=== PATIENT | female | born 1995 | race Caucasian/White ===

== ENCOUNTER 2016-10-11 21:55 | Inpatient (IN) | payer MEDICAID ==
[~2016-10-11] VITALS: Ht 157.5 cm; Wt 64.1 kg
[~2016-10-11 21:55] MED LIST: FERR325C PO; FOL8 PO; PRENAT PO
[2016-10-11 22:18] VITALS: BP 108/59; PULSE 99; RESP 18
--- NOTE | 2016-10-11 23:07 | RADRPT ---
PROCEDURE: ULTRASOUND OBSTETRICAL CLINICAL INDICATION: 21-year-old female with decreased movement for size and date determinat ion. TECHNIQUE: Multiple sonographic images of the pelvis were obtained. The images were reviewed on a PACS workstation. COMPARISON: Ultrasound biophysical profile obtained concurrently; ultrasound biophysical profile D [id number]. FINDINGS: The cervix is not well visualized. There is a single viable intrauterine gestation. Cardiac activit y is present with 148 beats per minute. There is a vertex presentation. Measurements were made in or hammad to determine age. The results are as follows: BPD = 9.31 cm, HC = 33.34 cm, AC = 34.39 cm, FL = 7.42 cm. This yields and estimated gestational ag e of approximately 38 weeks 1 day. The estimated date of delivery is October 24, 2016. The EFW = 3 410 +/- 511 g (7 lb 8 oz). The GP is 45%. The placenta is anterior. There is no evidence for an abruption or placenta previa. IMPRESSION: 1. Single viable intrauterine gestation of approximately 38 weeks 1 day with vertex presentation. The estimated date of delivery is October 24, 2016. 2. The estimated weight is 3410 +/- 511 g (7 lb 8 oz). The GP is 45%. .Malcolm Simpson MD, Date Time Electronically viewed and signed by .Malcolm Simpson MD, on 10/11/2016 23:07 .Shaheed/
--- NOTE | 2016-10-11 23:09 | RADRPT ---
PROCEDURE: ULTRASOUND BIOPHYSICAL PROFILE CLINICAL INDICATION: 21-year-old female with decreased movement for viability . TECHNIQUE: Multiple sonographic images were obtained in order to perform a biophysical profile The images were reviewed on a PACS workstation. COMPARISON: Ultrasound OB obtained concurrently; ultrasound biophysical profile September 29, 2016. FINDINGS: There is a single viable intrauterine gestation. There is a vertex presentation. Cardiac activity i s present at 152 beats per minute. The placenta is anterior. The results of the biophysical profile are as follows: breathing movement = 2/2 Gross body movement = 2/2 tone = 2/2 Qualitative amniotic fluid volume = 2/2 Amniotic fluid index equals 6.6 cm. This yields a biophysical profile score of 8/8. IMPRESSION: 1. Biophysical profile score is 8/8. 2. Amniotic fluid index equals 6.6 cm. .Malcolm Simpson MD, Date Time Electronically viewed and signed by .Malcolm Simpson MD, MD on 10/11/2016 23:09 .Shaheed/
[2016-10-12] MEDS ORDERED: MISOPROSTOL 200 MCG TAB PR PRN
[2016-10-12] MEDS ORDERED: IBUPROFEN 600 MG TAB PO PRN
[2016-10-12] MEDS ORDERED: METHYLERGONOVINE 0.2 MG INJ IM PRN
[2016-10-12] MEDS ORDERED: CARBOPROST 250 MCG INJ IM PRN
[2016-10-12] MEDS ORDERED: BUTORPHANOL 2 MG INJ IV PRN
[2016-10-12] MEDS ORDERED: OXYTOCIN 30 UNITS/LR 500 ML IV PRN
[2016-10-12] MEDS ORDERED: LIDOCAINE 1% (MPF) 30 ML INJ INJ PRN
[2016-10-12] MEDS ORDERED: DINOPROSTONE 10 MG VAG SUPP VAG ONE
[2016-10-12] MEDS: LACTATED RINGER'S 1,000 ML IV SCH ×4 (00:20→16:41)
--- NOTE | 2016-10-12 00:24 | TRIAGE ---
OB Triage Datetime Report Generated by CPN: 10/12/2016 00:23 Datetime: 10/12/2016 00:03 Stage of : OB Triage Labor Evaluation Frequency: 2-6 Monitor Mode: External Quality: Mild Pattern: Normal: <= 5 Contractions in 10 Minutes Resting Tone [place]: Relaxed Heart Rate FHR Baseline Rate: 135 Monitor Mode: External US FHR Baseline Changes: No Baseline Change Variability: Moderate 6-25 bpm Accelerations: 15X15 Decelerations: None Category: Category I Datetime: 10/11/2016 23:12 Stage of : OB Triage Labor Evaluation Frequency: 3-6 Monitor Mode: External Duration (sec)2399: 50-80 Quality: Mild Pattern: Normal: <= 5 Contractions in 10 Minutes Resting Tone [place]: Relaxed Heart Rate FHR Baseline Rate: 155 Monitor Mode: External US FHR Baseline Changes: No Baseline Change Variability: Moderate 6-25 bpm Accelerations: 15X15 Decelerations: None Category: Category I Vaginal Exam Dilatation (cms): 0.0 Effacement (%): 50 Station: -2 Exam By: Umer Shi Membrane Status: Intact Vaginal Bleeding: None Cervix, Consistency: Moderate Cervix, Position: Posterior Presentation 'A': Cephalic Datetime: 10/11/2016 22:10 Stage of : OB Triage Maternal Assessment Level of Consciousness: Fully Conscious Headache: Denies Blurred Vision: No Nausea/Vomiting: Denies RUQ Epigastric Pain: Denies Facial Edema: None Labor Evaluation Frequency: placed Monitor Mode: External Resting Tone [place]: Relaxed Monitor Mode: External US Comments: FHT 160 Pain Assessment Pain Scale: 4 Pain Presence: Intermittent Pain Type: Cramping Pain Location: Abdomen Datetime: 09/29/2016 22:10 Time of Arrival: 10/11/2016 21:52 EGA: 39.1 Arrived By: Ambulatory Arrived From: Home Chief Complaint: w/ c/o DFM and occas mild ucs Movement: Decreased Contractions: Occasional Time Contractions Began: 10/11/2016 16:00 Rupture of Membranes: Denies Vaginal Bleeding: None Vaginal Discharge: Denies Recent Sexual Intercouse: Denies Abdominal Trauma: Not Applicable Patient Complaints: Cramping Provider Notified: Dr Garcia Initial Plan: EFM,BPP,EFW Datetime: 09/29/2016 19:11 Fall Risk Assessment Fall Score: 15 Fall Risk Score Definition: No Risk: No action required Datetime: 09/29/2016 19:09 EGA: 37.3
[2016-10-12 01:28] LABS: INR 0.86; PROTIME 11.7 Sec (12.2-14.2); PT RATIO 0.9
[2016-10-12 01:29] LABS: PARTIAL THROMBOPLASTIN TIME 28.1 Sec (25.0-35.0)
[2016-10-12 01:48] LABS: BARBITURATES Negative (NEGATIVE); BENZODIAZEPINES Negative (NEGATIVE); CANNABINOIDS Negative (NEGATIVE); COCAINE Negative (NEGATIVE); OPIATES Negative (NEGATIVE)
[2016-10-12 02:08] LABS: BASOPHILS % 0.4 % (0.0-2.0); EOSINOPHILS # 0.1 10^3/ul (0.0-0.5); EOSINOPHILS % 0.5 % (0.0-7.0); HEMATOCRIT 36.1 % (37.0-47.0); HEMOGLOBIN 12.1 g/dl (12.0-16.0); LYMPHOCYTES # 2.4 10^3/ul (0.8-2.9); LYMPHOCYTES % 24.3 % (18.0-55.0); MEAN CORPUSCULAR HEMOGLOBIN 27.5 pg (29.0-33.0); MEAN CORPUSCULAR HGB CONC 33.7 g/dl (32.0-37.0); MEAN CORPUSCULAR VOLUME 81.8 fl (72.0-104.0); MONOCYTE # 0.6 10^3/ul (0.3-0.9); MONOCYTES % 6.4 % (0.0-13.0); NEUTROPHIL # 6.6 10^3/ul (1.6-7.5); NEUTROPHILS % 68.4 % (30.0-74.0); PLATELET COUNT 319 10^3/UL (140-440); RED BLOOD COUNT 4.41 10^6/ul (4.20-5.40); RED CELL DISTRIBUTION WIDTH 14.9 % (11.5-14.5); UNCORRECTED WBC 9.7 10^3/ul (4.8-10.8); WHITE BLOOD COUNT 9.7 10^3/ul (4.8-10.8)
[2016-10-12 02:10] LABS: CONDITION 1; LH ANALYZER COMMENTS 1
[2016-10-12] MEDS ORDERED: LACTATED RINGER'S 1,000 ML IV PRN (05:00)
[2016-10-12] MEDS ORDERED: FENTAnyl 2MCG/ML-ROPIV 0.2% 100 ML ONE (10:38)
[2016-10-12] MEDS ORDERED: NALOXONE (0.4 MG/ML) INJ IV PRN (11:30)
--- NOTE | 2016-10-12 11:45 | HP ---
Date/Time of Note Date/Time of Note DATE: 10/12/16 TIME: 11:43 OB - History Hx of Present Free Text/Dictation @39+wks GA with Decreased movements and low BRITTANY 6.6 : 1 Para: 0 Care: Good Care Obstetrical Complications: None Medical Complications: None Past Family/Social History * Past Medical, Surgical, Family and Obstetric Histories reviewed from chart. OB Admission Exam Vital Signs Vital Signs Vital Signs Date Time Temp Pulse Resp B/P Pulse Ox O2 Delivery O2 Flow Rate FiO2 10/11/16 22:18 98.3 99 18 108/59 Room Air Physical Exam Abdomen: WNL Extremities: Normal Cervical Dilatation: Fingertip Effacement: 50% Station: -1 Membranes: Intact Heart Rate: 140's Accelerations: Accelerations Present Decelerations: No Decelerations Varibility: Moderate Contractions on Admission: 6-10 Minutes Apart Last 72 hours Lab Results CBC & BMP 10/11/16 00:32 OB Assessment/Plan Reason for admission: induction of labor Plan: Induction PRANAY SCOTT M.D. Oct 12, 2016 11:45
[2016-10-12] MEDS ORDERED: OXYTOCIN 30 UNITS/LR 500 ML IV SCH ×3 (12:00)
[2016-10-12] MEDS: FENTAnyl 2MCG/ML-ROPIV 0.2% 100 ML BAG EPI SCH (17:17)
[2016-10-13] VITALS (12 sets, daily range): BP systolic 104–120; BP diastolic 55–80; PULSE 75–93; RESP 18–20
[2016-10-13] MEDS: FENTAnyl 2MCG/ML-ROPIV 0.2% 100 ML BAG EPI SCH (00:54)
[2016-10-13] MEDS: LACTATED RINGER'S 1,000 ML IV SCH ×3 (01:03→16:11)
[2016-10-13 01:46] LABS: BASOPHILS % 0.1 % (0.0-2.0); HEMATOCRIT 33.6 % (37.0-47.0); HEMOGLOBIN 11.1 g/dl (12.0-16.0); LYMPHOCYTES # 1.2 10^3/ul (0.8-2.9); LYMPHOCYTES % 8.5 % (18.0-55.0); MEAN CORPUSCULAR HEMOGLOBIN 26.9 pg (29.0-33.0); MEAN CORPUSCULAR HGB CONC 33.1 g/dl (32.0-37.0); MEAN CORPUSCULAR VOLUME 81.3 fl (72.0-104.0); MEAN PLATELET VOLUME 7.8 fl (7.4-10.4); MONOCYTE # 0.7 10^3/ul (0.3-0.9); MONOCYTES % 4.9 % (0.0-13.0); NEUTROPHIL # 12.5 10^3/ul (1.6-7.5); NEUTROPHILS % 86.5 % (30.0-74.0); PLATELET COUNT 268 10^3/UL (140-440); RED BLOOD COUNT 4.13 10^6/ul (4.20-5.40); RED CELL DISTRIBUTION WIDTH 15.6 % (11.5-14.5); UNCORRECTED WBC 14.5 10^3/ul (4.8-10.8); WHITE BLOOD COUNT 14.5 10^3/ul (4.8-10.8)
[2016-10-13 01:53] LABS: CONDITION 1; LH ANALYZER COMMENTS 1
[2016-10-13] MEDS ORDERED: LIDOCAINE 2% (SDV) 5 ML INJ ONE (05:46)
[2016-10-13] MEDS ORDERED: LIDOCAINE 2%/EPI 30 ML INJ ONE (05:46)
[2016-10-13] MEDS ORDERED: FENTAnyl 50 MCG/ML VIAL ONE (05:47)
[2016-10-13] MEDS ORDERED: CEFAZOLIN 2 GM/50 ML (PMX) 50 ML IVPB ONE (05:52)
[2016-10-13] MEDS ORDERED: CEFAZOLIN 1 GM INJ ONE (05:53)
[2016-10-13] MEDS ORDERED: PHENYLephrine (100 MCG/ML) 5ML SYG ONE (05:54)
[2016-10-13] MEDS ORDERED: OXYTOCIN 30 UNITS/LR 500 ML IV SCH (06:00)
[2016-10-13] MEDS ORDERED: CARBOPROST 250 MCG INJ IM PRN ×2 (06:00→10:30)
[2016-10-13] MEDS ORDERED: OXYTOCIN 30 UNITS/LR 500 ML IV PRN ×2 (06:00→10:30)
[2016-10-13] MEDS ORDERED: MISOPROSTOL 200 MCG TAB PR PRN ×2 (06:00→10:30)
[2016-10-13] MEDS ORDERED: CEFAZOLIN 2 GM/50 ML (PMX) 50 ML IV SCH (06:00)
[2016-10-13] MEDS ORDERED: METHYLERGONOVINE 0.2 MG INJ IM PRN ×2 (06:00→10:30)
[2016-10-13] MEDS ORDERED: MIDAZOLAM 1 MG/ML 2 ML INJ ONE (06:05)
[2016-10-13] MEDS ORDERED: DEXAMETHASONE 4 MG/ML 1 ML INJ ONE (06:07)
[2016-10-13] MEDS ORDERED: ONDANSETRON 4 MG INJ ONE (06:07)
[2016-10-13] MEDS ORDERED: morphine SULFATE/PF (10 MG/10 ML) INJ ONE (06:32)
--- NOTE | 2016-10-13 06:42 | OPR ---
Operative Report Planned Procedure Free Text/Dictation @39+WKS GA with Failure to progress (No cervical change more than 5 hours Cervical exam 9 cm/-1) Patient declines further trial of the labor and persistently requesting a primary c/section Primary c/section vs vaginal delivery extensively discussed with patient Procedure date Oct 13, 2016 Procedure(s) primary c/section Performed by: PRANAY SCOTT M.D. Assisting provider: JING PRETTY MD Anesthesiologist: FRANCIE LEON DO Pre-procedure diagnosis @39+WKS GA with Failure to progress (No cervical change more than 5 hours Cervical exam 9 cm/-1) Patient declines further trial of the labor and persistently requesting a primary c/section Primary c/section vs vaginal delivery extensively discussed with patient Anesthesia Type: spinal Procedure Description Under satisfactory [] anesthesia, the patient was prepped and draped and placed in a supine position, tilted to the left. Pfannenstiel incision was made, carried through the subcutaneous tissue. Bleeders brought under control with electrocautery. Fascia incised to the length of the incision. Rectus muscles from the fascia, divided midline. Peritoneum exposed, entered through a transverse incision. Exploration of abdomen revealed gravid uterus. Bladder flap was developed. Transverse incision was made in the lower segment of the uterus. Amniotic sac ruptured. [] amniotic fluid noted. [] Nasal oropharyngeal suction was performed. The baby was handed to the team for immediate attention. The placenta was delivered manually intact. Uterine cavity was cleaned with wet sponge and drainage established. Uterus closed in 2 layers using [] in continuous fashion. Peritoneal cavity irrigated with warm saline. Sponge, needle and instrument count reported to be correct. Abdominal peritoneum closed with [] continuously. Rectus muscle approximated with []. Fascia closed with [], and skin closed with bronson. Estimated blood loss [ 600mL. Urine bag contained []mL of urine Thick meconium Post-Procedure Findings: Live Baby [], Apgars [] and [], weight [], position [], [] presentation []cord. Specimen removed: Yes Complications: None Pt Condition post procedure: stable Disposition: PACU Physician Certification I, the undersigned physician, hereby certify that I have discussed the procedure described in this consent form with this patient (or the patient's legal representative phlebotomy services), including: * The risk and benefits of the procedure; * Any adverse reactions that may reasonably be expected to occur; * Any alternative efficacious methods of treatment which may be medically viable ; * The potential problems that may occur during recuperation; * Potential for blood transfusion and associated risks/benefits; and * Any research or economic interest I may have regarding this treatment. I further certify that the patient/legally responsible person was encouraged to ask question and that all questions were answered. PRANAY SCOTT M.D. Oct 13, 2016 06:42
[2016-10-13] MEDS ORDERED: KETOROLAC 30 MG INJ ONE (06:45)
[2016-10-13] MEDS ORDERED: ONDANSETRON 4 MG INJ IV PRN (07:00)
[2016-10-13] MEDS ORDERED: HYDROmorphONE 1 MG/ML SYG IV PRN ×2 (07:00)
[2016-10-13] MEDS ORDERED: ZOLPIDEM 5 MG TAB PO PRN (07:00)
[2016-10-13] MEDS ORDERED: NALOXONE (0.4 MG/ML) INJ IV PRN (07:00)
[2016-10-13] MEDS ORDERED: DIPHENHYDRAMINE 50 MG INJ IV PRN (07:00)
[2016-10-13] MEDS ORDERED: PROCHLORPERAZINE 10 MG INJ IV PRN (07:00)
[2016-10-13] MEDS ORDERED: KETOROLAC 30 MG INJ IV PRN (07:00)
[2016-10-13] MEDS ORDERED: LANOLIN 7 GM TUBE TOP PRN (10:30)
[2016-10-13 11:05] LABS: HEMATOCRIT 32.3 % (37.0-47.0); HEMOGLOBIN 10.8 g/dl (12.0-16.0); LYMPHOCYTES # 0.8 10^3/ul (0.8-2.9); LYMPHOCYTES % 4.3 % (18.0-55.0); MEAN CORPUSCULAR HEMOGLOBIN 27.1 pg (29.0-33.0); MEAN CORPUSCULAR HGB CONC 33.4 g/dl (32.0-37.0); MEAN CORPUSCULAR VOLUME 81.2 fl (72.0-104.0); MEAN PLATELET VOLUME 7.4 fl (7.4-10.4); MONOCYTE # 0.7 10^3/ul (0.3-0.9); MONOCYTES % 3.8 % (0.0-13.0); NEUTROPHIL # 17.5 10^3/ul (1.6-7.5); NEUTROPHILS % 91.9 % (30.0-74.0); PLATELET COUNT 220 10^3/UL (140-440); RED BLOOD COUNT 3.97 10^6/ul (4.20-5.40); RED CELL DISTRIBUTION WIDTH 15.3 % (11.5-14.5)
[2016-10-13 11:32] LABS: CONDITION 1; LH ANALYZER COMMENTS 1
[2016-10-13] MEDS: CEFAZOLIN 1 GM/50 ML (PMX) 50 ML IVPB SCH ×2 (12:27→21:36)
[2016-10-13] MEDS: SENNA/DOCUSATE NA (8.6MG/50MG) TAB PO SCH (21:38)
[2016-10-14 00:25] VITALS: BP 105/55; PULSE 89; RESP 20
[2016-10-14] MEDS: LACTATED RINGER'S 1,000 ML IV SCH (03:22)
[2016-10-14 04:58] VITALS: BP 106/54; PULSE 98; RESP 20
[2016-10-14] MEDS: CEFAZOLIN 1 GM/50 ML (PMX) 50 ML IVPB SCH (05:44)
[2016-10-14] MEDS: IBUPROFEN 600 MG TAB PO SCH ×3 (06:00→17:22)
[2016-10-14 08:00] VITALS: BP 106/53; RESP 18
[2016-10-14 08:05] LABS: BASOPHILS % 0.2 % (0.0-2.0); EOSINOPHILS % 0.2 % (0.0-7.0); HEMATOCRIT 25.5 % (37.0-47.0); HEMOGLOBIN 8.5 g/dl (12.0-16.0); LYMPHOCYTES # 1.9 10^3/ul (0.8-2.9); LYMPHOCYTES % 15.3 % (18.0-55.0); MEAN CORPUSCULAR HEMOGLOBIN 27.5 pg (29.0-33.0); MEAN CORPUSCULAR HGB CONC 33.5 g/dl (32.0-37.0); MEAN CORPUSCULAR VOLUME 82.1 fl (72.0-104.0); MEAN PLATELET VOLUME 7.5 fl (7.4-10.4); MONOCYTE # 0.8 10^3/ul (0.3-0.9); MONOCYTES % 6.6 % (0.0-13.0); NEUTROPHIL # 9.4 10^3/ul (1.6-7.5); NEUTROPHILS % 77.7 % (30.0-74.0); PLATELET COUNT 189 10^3/UL (140-440); RED CELL DISTRIBUTION WIDTH 15.8 % (11.5-14.5); UNCORRECTED WBC 12.1 10^3/ul (4.8-10.8); WHITE BLOOD COUNT 12.1 10^3/ul (4.8-10.8)
[2016-10-14 08:14] LABS: CONDITION 1; LH ANALYZER COMMENTS 1
[2016-10-14] MEDS ORDERED: INFLUENZA VIRUS VACCINE 0.5 ML (DISPENSING) IM* ONE (09:00)
[2016-10-14] MEDS: SENNA/DOCUSATE NA (8.6MG/50MG) TAB PO SCH ×2 (11:30→21:00)
[2016-10-14 16:39] VITALS: BP 100/62; PULSE 80; RESP 18
[2016-10-14 20:00] VITALS: BP 111/64; PULSE 78; RESP 20
[2016-10-15] MEDS: IBUPROFEN 600 MG TAB PO SCH ×4 (00:46→17:35)
[2016-10-15 04:15] VITALS: BP 108/60; PULSE 66; RESP 20
[2016-10-15 08:15] VITALS: BP 97/53; PULSE 77; RESP 18
--- NOTE | 2016-10-15 08:37 | PN ---
Date/Time of Note Date/Time of Note DATE: 10/15/16 TIME: 08:35 OB Subjective Subjective Subjective 10/14/16: Late entry POD#1 is stable afebrile tolerated diet No VB +Flatus +Voids No sign of depression VS stable Gen NAD Abd soft NT ND Incision intact Genitalia No blood at perinium --->Discharge plan tomorrow --->Ambulation PRANAY SCOTT M.D. Oct 15, 2016 08:36
[2016-10-15] MEDS: SENNA/DOCUSATE NA (8.6MG/50MG) TAB PO SCH ×2 (09:55→21:44)
[2016-10-15 16:00] VITALS: BP 113/56; PULSE 85; RESP 18
[2016-10-15 20:20] VITALS: BP 102/60; PULSE 75; RESP 20
[2016-10-16] MEDS: IBUPROFEN 600 MG TAB PO SCH ×3 (00:16→11:45)
[2016-10-16 04:55] VITALS: BP 117/67; PULSE 66; RESP 20
[2016-10-16 07:35] VITALS: BP 110/72; PULSE 60; RESP 16
[2016-10-16] MEDS ORDERED: DIPHTH/TET/ACEL PERTUSS (ADULT) 0.5 ML VIAL IM* ONE (09:00)
[2016-10-16] MEDS: SENNA/DOCUSATE NA (8.6MG/50MG) TAB PO SCH (09:05)
--- NOTE | 2016-10-16 10:52 | DS ---
Date/Time of Note Date/Time of Note DATE: 10/16/16 TIME: 10:51 Discharge Summary Admission/Discharge Info Admit Date/Time Oct 11, 2016 at 23:17 Discharge Date/Time Final Diagnosis Labor Patient Condition: Stable Procedures Primary c/section Hospital Course uneventful Home Meds Discontinued Reported Medications Folic Acid* (Folic Acid*) 0.8 Mg Tablet, 0.8 MG PO DAILY, TAB 09/29/16 Ferrous Sulfate (Iron) 325 Mg Capsule.er, 325 MG PO DAILY, CAP 09/29/16 Multivit/Min/Fol Ac/Iron/Pren* ( S*) 1 Tab Tab, 1 TAB PO DAILY, TAB 09/29/16 PRANAY SCOTT M.D. Oct 16, 2016 10:52
== END 2016-10-16 13:15 | disposition home or self-care (01) | DRG 766 ==
LOC: L-D 21:55 → OBT 21:55 → L-D 23:17 → OBT 23:17 → L-D 10-13 06:26 → PP1 10-13 09:57
PROVIDERS: ADMIT Obstetrics & Gynecology; ATTEND Obstetrics & Gynecology
PROC: 10D00Z1 Extraction of Products of Conception, Low, Open Approach (ICD-10-PCS; principal; 2016-10-13 06:00)
DX: O62.0 Primary inadequate contractions (principal); Z37.0 Single live birth; Z3A.39 39 weeks gestation of pregnancy
CPT/HCPCS: 62319; 76815; 76818; 80307; 85025; 85610; 85730; 86592; 86900; 86901; 87340; 90686; 90715; 99464; G0463; J0690; J1100; J1885; J2210; J2250; J2274; J2370; J2405; J2590; J3010; J7120

== ENCOUNTER 2018-09-10 22:37 | Outpatient (CLI) | END 2018-09-11 00:05 | disposition home or self-care (01) ==